=== PATIENT | male | born 1945 | race African-American/Black ===

== ENCOUNTER 2020-07-27 08:22 | Inpatient (IN) | payer OTHER ==
[~2020-07-27] VITALS: Ht 332.7 cm; Wt 99.8 kg
[2020-07-27] MEDS ORDERED: SODIUM CHLORIDE 0.9% 1000ML BAG (SEPSIS BOLUS) IV ONE (08:45)
[2020-07-27 09:24] LABS: CLARITY URINE CLEAR (CLEAR); COLOR URINE YELLOW (YELLOW); KETONES URINE NEGATIVE (NEGATIVE); LEUKOCYTE ESTERASE URINE NEGATIVE (NEGATIVE); NITRITE URINE NEGATIVE (NEGATIVE); OCCULT BLOOD URINE 1+ (NEGATIVE); PROTEIN URINE 3+ (NEGATIVE); SPECIFIC GRAVITY URINE 1.015 (1.005-1.030)
[2020-07-27 09:33] LABS: BASOPHILS % 0.3 % (0.0-2.0); EOSINOPHILS % 0.6 % (0.0-5.0); HEMATOCRIT. 46.2 % (42.0-52.0); HEMOGLOBIN. 15.4 g/dL (14.0-18.0); LYMPHOCYTES % 11.5 % (20.0-50.0); MEAN CORPUSCULAR HEMOGLOBIN 28.1 pg (28.0-32.0); MEAN PLATELET VOLUME 9.3 fl (7.4-10.4); NEUTROPHILS % 80.6 % (40.0-76.0); PLATELET 201 x1000/uL (130-400); RED BLOOD CELL COUNT 5.51 mill/uL (4.7-6.1); RED CELL DISTRIBUTION WIDTH 15.7 % (11.6-14.6)
[2020-07-27 09:37] LABS: CHLORIDE 101 mEq/L (98-107)
[2020-07-27 09:46] LABS: CREATINE KINASE 847 IU/L (39-308)
[2020-07-27 09:58] LABS: D-DIMER 1.12 mg/L FEU (<0.50); PROTHROMBIN TIME 10.5 sec (9.6-11.0)
[2020-07-27 10:35] LABS: BG CARBOXYHEMOGLOBIN 0.8 % (0.5-1.5); BG DEOXYHEMOGLOBIN 1.7 % (0.0-5.0); BG FRACTION INSPIRED OXYGEN 100; BG HCO3 ACT 24.1 mmol/L (22.0-26.0); BG METHEMOGLOBIN 0.4 % (0.0-1.5); BG OXYGEN SATURATION 98.3 % (92.0-98.5); BG OXYHEMOGLOBIN 97.1 % (94.0-97.0); BG PCO2 37.8 mmHg (35.0-45.0); BG PH 7.423 (7.350-7.450); BG PO2 120.3 mmHg (75.0-100.0); BG SAMPLE SITE LEFT RADIAL; BG TOTAL HEMOGLOBIN 15.5 g/dL (12.0-18.0); BG VENT MODE MASK - NRB
[2020-07-27] MEDS ORDERED: CEFTRIAXONE 1 G PREMIX 50 ML IV ONE (10:45)
[2020-07-27] MEDS ORDERED: AZITHROMYCIN 500 MG in DEXT 5% WATER 250 ML IV SCH (10:45)
[2020-07-27] MEDS: GUAIFENESIN-DM 200MG-20MG/10ML UDC PO PRN (21:32)
[2020-07-28] MEDS: CLONIDINE 0.1MG TABLET PO PRN ×3 (01:07→18:37)
[2020-07-28] MEDS: GUAIFENESIN-DM 200MG-20MG/10ML UDC PO PRN (05:04)
[2020-07-28 09:00] VITALS: BP 218/113
[2020-07-28] MEDS ORDERED: ONDANSETRON HCL 4MG/2ML INJ IV PRN (09:15)
[2020-07-28] MEDS ORDERED: ALBUTEROL 6.7GM HFA INHALER ORI PRN (09:15)
[2020-07-28] MEDS ORDERED: DEXAMETHASONE 4MG TABLET PO SCH (09:30)
[2020-07-28] MEDS: AMLODIPINE 10MG TABLET PO SCH (10:24)
[2020-07-28] MEDS: ENOXAPARIN 30MG/0.3ML SYR SUBCUT SCH ×2 (10:26→23:39)
[2020-07-28 11:00] VITALS: BP 214/113
[2020-07-28] MEDS ORDERED: CEFTRIAXONE 1 G PREMIX 50 ML IV SCH (11:00)
[2020-07-28] MEDS ORDERED: HYDRALAZINE HCL 100MG TABLET PO NR (11:30)
[2020-07-28 12:00] VITALS: BP 153/88
[2020-07-28 12:22] LABS: BASOPHILS % 0.3 % (0.0-2.0); EOSINOPHILS % 0.4 % (0.0-5.0); HEMATOCRIT. 45.6 % (42.0-52.0); HEMOGLOBIN. 15.4 g/dL (14.0-18.0); LYMPHOCYTES % 8.4 % (20.0-50.0); MEAN CORPUSCULAR HEMOGLOBIN 28.5 pg (28.0-32.0); MEAN CORPUSCULAR VOLUME 84.3 fL (80.0-94.0); MEAN PLATELET VOLUME 10.1 fl (7.4-10.4); MONOCYTES % 9.7 % (2.0-8.0); NEUTROPHILS % 81.2 % (40.0-76.0); PLATELET 247 x1000/uL (130-400); RED BLOOD CELL COUNT 5.41 mill/uL (4.7-6.1); RED CELL DISTRIBUTION WIDTH 15.7 % (11.6-14.6)
[2020-07-28] MEDS: AZITHROMYCIN 500 MG in DEXT 5% WATER 250 ML IV SCH (12:59)
[2020-07-28] MEDS: CEFTRIAXONE 1,000 MG in DEXTROSE 5% WATER 50 ML IV SCH (12:59)
[2020-07-28] MEDS ORDERED: AZITHROMYCIN 500MG in DEXTROSE 5% WATER 250ML IV SCH (13:00)
[2020-07-28] MEDS: HYDRALAZINE HCL 100MG TABLET PO SCH ×2 (14:24→23:39)
[2020-07-28] MEDS: ALPRAZOLAM 0.25 MG TABLET PO PRN (14:24)
[2020-07-28] MEDS: SODIUM CHLORIDE 0.9% 1,000 ML IV SCH (15:35)
[2020-07-28 16:00] VITALS: BP 190/103
[2020-07-28 20:00] VITALS: BP 147/91
[2020-07-28] MEDS: ASCORBIC ACID 500 MG TABLET PO SCH (23:39)
[2020-07-29] VITALS: BP 131/78
[2020-07-29 04:00] VITALS: BP 147/81
[2020-07-29] MEDS: SODIUM CHLORIDE 0.9% 1,000 ML IV SCH ×2 (04:02→16:37)
[2020-07-29 07:13] LABS: BASOPHILS % 0.1 % (0.0-2.0); HEMATOCRIT. 43.4 % (42.0-52.0); HEMOGLOBIN. 14.1 g/dL (14.0-18.0); LYMPHOCYTES % 8.3 % (20.0-50.0); MEAN CORPUSCULAR HEMOGLOBIN 27.7 pg (28.0-32.0); MEAN CORPUSCULAR VOLUME 85.4 fL (80.0-94.0); MEAN PLATELET VOLUME 9.4 fl (7.4-10.4); MONOCYTES % 6.9 % (2.0-8.0); NEUTROPHILS % 84.7 % (40.0-76.0); PLATELET 268 x1000/uL (130-400); RED BLOOD CELL COUNT 5.09 mill/uL (4.7-6.1); RED CELL DISTRIBUTION WIDTH 15.6 % (11.6-14.6)
[2020-07-29 08:00] VITALS: BP 146/87
[2020-07-29] MEDS: ERGOCALCIFEROL 50000UNITS CAPSULE PO SCH (10:19)
[2020-07-29] MEDS: AMLODIPINE 10MG TABLET PO SCH (10:20)
[2020-07-29] MEDS: ASCORBIC ACID 500 MG TABLET PO SCH ×2 (10:20→21:57)
[2020-07-29] MEDS: DEXAMETHASONE 10 MG/ML VIAL IV SCH (10:20)
[2020-07-29] MEDS ORDERED: LIDOCAINE HCL/PF 1% 2ML VIAL ONE ×2 (11:00)
[2020-07-29] MEDS ORDERED: CEFTRIAXONE 1,000 MG in DEXTROSE 5% WATER 50 ML IV SCH (11:00)
[2020-07-29 12:00] VITALS: BP 138/70
[2020-07-29] MEDS: CEFTRIAXONE 1,000 MG in DEXTROSE 5% WATER 50 ML IV SCH (12:05)
[2020-07-29] MEDS: ENOXAPARIN 30MG/0.3ML SYR SUBCUT SCH ×2 (12:05→21:58)
[2020-07-29] MEDS: AZITHROMYCIN 500 MG in DEXT 5% WATER 250 ML IV SCH (13:25)
[2020-07-29 16:00] VITALS: BP 137/77
[2020-07-29 16:05] LABS: BG BASE EXCESS 0.4 mmol/L (-2.0-2.0); BG CARBOXYHEMOGLOBIN 0.2 % (0.5-1.5); BG DEOXYHEMOGLOBIN 1.1 % (0.0-5.0); BG FRACTION INSPIRED OXYGEN 100; BG HCO3 ACT 28.5 mmol/L (22.0-26.0); BG METHEMOGLOBIN 0.6 % (0.0-1.5); BG OXYGEN SATURATION 98.9 % (92.0-98.5); BG OXYHEMOGLOBIN 98.1 % (94.0-97.0); BG PCO2 59.9 mmHg (35.0-45.0); BG PH 7.296 (7.350-7.450); BG PO2 150.5 mmHg (75.0-100.0); BG SAMPLE SITE LEFT RADIAL; BG TOTAL HEMOGLOBIN 16.3 g/dL (12.0-18.0); BG VENT MODE MASK - NRB
[2020-07-29] MEDS: HYDRALAZINE HCL 100MG TABLET PO SCH ×2 (16:36→21:57)
[2020-07-29] MEDS ORDERED: DEXTROSE 50% WATER 50ML SYRINGE IV PRN (18:15)
[2020-07-29 20:00] VITALS: BP 154/80
[2020-07-29] MEDS: GUAIFENESIN-DM 200MG-20MG/10ML UDC PO PRN (21:57)
[2020-07-29] MEDS: ALPRAZOLAM 0.25 MG TABLET PO PRN (21:57)
[2020-07-29] MEDS: BLOOD SUGAR DIAGNOSTIC STRIP TEST SCH (21:58)
[2020-07-29] MEDS: INSULIN LISPRO 100 UNITS/ML SUBCUT SCH (22:00)
[2020-07-30] VITALS: BP 159/90
[2020-07-30 04:00] VITALS: BP 152/83
[2020-07-30] MEDS: HYDRALAZINE HCL 100MG TABLET PO SCH ×3 (05:51→22:01)
[2020-07-30] MEDS: BLOOD SUGAR DIAGNOSTIC STRIP TEST SCH ×4 (05:51→21:00)
[2020-07-30] MEDS: SODIUM CHLORIDE 0.9% 1,000 ML IV SCH (05:53)
[2020-07-30] MEDS: INSULIN LISPRO 100 UNITS/ML SUBCUT SCH ×4 (06:22→22:13)
[2020-07-30 08:00] VITALS: BP 154/84
[2020-07-30] MEDS: DEXAMETHASONE 10 MG/ML VIAL IV SCH (09:07)
[2020-07-30] MEDS: ENOXAPARIN 30MG/0.3ML SYR SUBCUT SCH ×2 (09:07→22:01)
[2020-07-30] MEDS: AMLODIPINE 10MG TABLET PO SCH (09:07)
[2020-07-30] MEDS: ASCORBIC ACID 500 MG TABLET PO SCH ×2 (09:07→22:02)
[2020-07-30 12:00] VITALS: BP 148/79
[2020-07-30] MEDS: CEFTRIAXONE 1,000 MG in DEXTROSE 5% WATER 50 ML IV SCH (12:34)
[2020-07-30 16:00] VITALS: BP 134/76
[2020-07-30 20:00] VITALS: BP 140/76
[2020-07-30] MEDS: INSULIN GLARGINE UD 100 UNITS/ML SYR SUBCUT SCH (23:16)
[2020-07-31] VITALS: BP 162/80
[2020-07-31 04:00] VITALS: BP 167/91
[2020-07-31] MEDS: BLOOD SUGAR DIAGNOSTIC STRIP TEST SCH ×4 (06:15→21:02)
[2020-07-31] MEDS: INSULIN LISPRO 100 UNITS/ML SUBCUT SCH ×4 (06:15→21:04)
[2020-07-31] MEDS: HYDRALAZINE HCL 100MG TABLET PO SCH ×3 (06:37→21:03)
[2020-07-31] MEDS: ASCORBIC ACID 500 MG TABLET PO SCH ×2 (09:05→21:05)
[2020-07-31] MEDS: DEXAMETHASONE 10 MG/ML VIAL IV SCH (09:05)
[2020-07-31] MEDS: AMLODIPINE 10MG TABLET PO SCH (09:05)
[2020-07-31] MEDS: SODIUM CHLORIDE 0.9% 1,000 ML IV SCH ×2 (09:14→22:14)
[2020-07-31] MEDS: ENOXAPARIN 30MG/0.3ML SYR SUBCUT SCH ×2 (10:37→21:01)
[2020-07-31] MEDS: INSULIN GLARGINE UD 100 UNITS/ML SYR SUBCUT SCH ×2 (10:38→22:13)
[2020-07-31 11:04] VITALS: BP 150/83
[2020-07-31 11:14] LABS: BASOPHILS % 0.3 % (0.0-2.0); EOSINOPHILS % 0.1 % (0.0-5.0); HEMATOCRIT. 46.8 % (42.0-52.0); HEMOGLOBIN. 15.1 g/dL (14.0-18.0); LYMPHOCYTES % 12.8 % (20.0-50.0); MEAN CORPUSCULAR HEMOGLOBIN 27.5 pg (28.0-32.0); MEAN CORPUSCULAR VOLUME 85.5 fL (80.0-94.0); MEAN PLATELET VOLUME 9.1 fl (7.4-10.4); MONOCYTES % 7.8 % (2.0-8.0); PLATELET 318 x1000/uL (130-400); RED BLOOD CELL COUNT 5.47 mill/uL (4.7-6.1); RED CELL DISTRIBUTION WIDTH 15.5 % (11.6-14.6)
[2020-07-31 11:28] LABS: CHLORIDE 107 mEq/L (98-107)
[2020-07-31] MEDS: CEFTRIAXONE 1,000 MG in DEXTROSE 5% WATER 50 ML IV SCH (11:31)
[2020-07-31 16:00] VITALS: BP 138/79
[2020-07-31] MEDS: CLONIDINE 0.1MG TABLET PO SCH ×2 (16:16→21:02)
[2020-07-31 20:00] VITALS: BP 147/86
[2020-08-01] VITALS (7 sets, daily range): BP systolic 113–163; BP diastolic 64–93
[2020-08-01] MEDS: BLOOD SUGAR DIAGNOSTIC STRIP TEST SCH ×4 (05:57→21:00)
[2020-08-01] MEDS: HYDRALAZINE HCL 100MG TABLET PO SCH ×3 (05:57→22:25)
[2020-08-01] MEDS: INSULIN LISPRO 100 UNITS/ML SUBCUT SCH ×4 (05:58→22:28)
[2020-08-01 07:28] LABS: BASOPHILS % 0.4 % (0.0-2.0); EOSINOPHILS % 0.4 % (0.0-5.0); HEMATOCRIT. 44.4 % (42.0-52.0); HEMOGLOBIN. 14.8 g/dL (14.0-18.0); LYMPHOCYTES % 17.3 % (20.0-50.0); MEAN CORPUSCULAR VOLUME 83.9 fL (80.0-94.0); MEAN PLATELET VOLUME 8.8 fl (7.4-10.4); MONOCYTES % 9.3 % (2.0-8.0); NEUTROPHILS % 72.6 % (40.0-76.0); PLATELET 334 x1000/uL (130-400); RED BLOOD CELL COUNT 5.29 mill/uL (4.7-6.1); RED CELL DISTRIBUTION WIDTH 15.4 % (11.6-14.6)
[2020-08-01 07:45] LABS: CHLORIDE 106 mEq/L (98-107)
[2020-08-01] MEDS: DEXAMETHASONE 10 MG/ML VIAL IV SCH (08:44)
[2020-08-01] MEDS: CLONIDINE 0.1MG TABLET PO SCH ×2 (08:48→22:25)
[2020-08-01] MEDS: AMLODIPINE 10MG TABLET PO SCH (08:48)
[2020-08-01] MEDS: ASCORBIC ACID 500 MG TABLET PO SCH ×2 (08:48→22:25)
[2020-08-01] MEDS: ENOXAPARIN 30MG/0.3ML SYR SUBCUT SCH ×2 (10:27→22:26)
[2020-08-01] MEDS: INSULIN GLARGINE UD 100 UNITS/ML SYR SUBCUT SCH ×2 (10:31→22:54)
[2020-08-01] MEDS: CEFTRIAXONE 1,000 MG in DEXTROSE 5% WATER 50 ML IV SCH (11:26)
[2020-08-01] MEDS: SODIUM CHLORIDE 0.9% 1,000 ML IV SCH (11:26)
[2020-08-01 16:24] LABS: BG BASE EXCESS 3.8 mmol/L (-2.0-2.0); BG CARBOXYHEMOGLOBIN 0.7 % (0.5-1.5); BG DEOXYHEMOGLOBIN 21.7 % (0.0-5.0); BG HCO3 ACT 29.7 mmol/L (22.0-26.0); BG METHEMOGLOBIN 0.3 % (0.0-1.5); BG OXYGEN SATURATION 78.1 % (92.0-98.5); BG OXYHEMOGLOBIN 77.3 % (94.0-97.0); BG PCO2 48.9 mmHg (35.0-45.0); BG PH 7.402 (7.350-7.450); BG SAMPLE SITE RIGHT RADIAL; BG TOTAL HEMOGLOBIN 16.8 g/dL (12.0-18.0); BG VENT MODE ROOM AIR
[2020-08-01] MEDS: CLONIDINE 0.1MG TABLET PO PRN (17:08)
[2020-08-02] VITALS (7 sets, daily range): BP systolic 141–185; BP diastolic 59–90
[2020-08-02] MEDS: SODIUM CHLORIDE 0.9% 1,000 ML IV SCH ×3 (01:03→22:27)
[2020-08-02] MEDS: CLONIDINE 0.1MG TABLET PO PRN (03:50)
[2020-08-02] MEDS: HYDRALAZINE HCL 100MG TABLET PO SCH ×3 (05:52→22:25)
[2020-08-02] MEDS: BLOOD SUGAR DIAGNOSTIC STRIP TEST SCH ×4 (05:54→21:00)
[2020-08-02] MEDS: INSULIN LISPRO 100 UNITS/ML SUBCUT SCH ×4 (05:54→22:28)
[2020-08-02] MEDS: INSULIN GLARGINE UD 100 UNITS/ML SYR SUBCUT SCH ×2 (09:50→22:39)
[2020-08-02] MEDS: CLONIDINE 0.2MG TABLET PO SCH ×2 (09:52→20:19)
[2020-08-02] MEDS: DEXAMETHASONE 10 MG/ML VIAL IV SCH (09:52)
[2020-08-02] MEDS: ASCORBIC ACID 500 MG TABLET PO SCH ×2 (09:52→22:25)
[2020-08-02] MEDS: AMLODIPINE 10MG TABLET PO SCH (09:52)
[2020-08-02] MEDS: ENOXAPARIN 30MG/0.3ML SYR SUBCUT SCH ×2 (09:53→22:25)
[2020-08-02] MEDS: ACETAMINOPHEN 325MG TABLET PO PRN (10:06)
[2020-08-02] MEDS: CEFTRIAXONE 1,000 MG in DEXTROSE 5% WATER 50 ML IV SCH (12:10)
[2020-08-02] MEDS: GUAIFENESIN-DM 200MG-20MG/10ML UDC PO PRN (22:24)
[2020-08-03] VITALS: BP 153/79
[2020-08-03 04:00] VITALS: BP 110/50
[2020-08-03] MEDS: HYDRALAZINE HCL 100MG TABLET PO SCH ×3 (06:00→21:16)
[2020-08-03] MEDS: BLOOD SUGAR DIAGNOSTIC STRIP TEST SCH ×4 (06:34→20:36)
[2020-08-03] MEDS: INSULIN LISPRO 100 UNITS/ML SUBCUT SCH ×4 (07:50→20:38)
[2020-08-03 08:00] VITALS: BP 174/82
[2020-08-03] MEDS: AMLODIPINE 10MG TABLET PO SCH (09:45)
[2020-08-03] MEDS: CLONIDINE 0.2MG TABLET PO SCH ×2 (09:45→21:17)
[2020-08-03] MEDS: ASCORBIC ACID 500 MG TABLET PO SCH ×2 (09:45→20:33)
[2020-08-03] MEDS: DEXAMETHASONE 10 MG/ML VIAL IV SCH (09:45)
[2020-08-03] MEDS: ENOXAPARIN 30MG/0.3ML SYR SUBCUT SCH ×2 (10:34→21:17)
[2020-08-03] MEDS: GUAIFENESIN-DM 200MG-20MG/10ML UDC PO PRN ×2 (10:34→20:33)
[2020-08-03] MEDS: INSULIN GLARGINE UD 100 UNITS/ML SYR SUBCUT SCH ×2 (10:35→22:00)
[2020-08-03 11:39] LABS: BG BASE EXCESS 3.6 mmol/L (-2.0-2.0); BG CARBOXYHEMOGLOBIN 0.2 % (0.5-1.5); BG DEOXYHEMOGLOBIN 1.4 % (0.0-5.0); BG FRACTION INSPIRED OXYGEN 36; BG HCO3 ACT 27.1 mmol/L (22.0-26.0); BG METHEMOGLOBIN 0.2 % (0.0-1.5); BG OXYGEN SATURATION 98.6 % (92.0-98.5); BG OXYHEMOGLOBIN 98.2 % (94.0-97.0); BG PCO2 37.7 mmHg (35.0-45.0); BG PH 7.475 (7.350-7.450); BG PO2 130.7 mmHg (75.0-100.0); BG SAMPLE SITE RIGHT RADIAL; BG TOTAL HEMOGLOBIN 15.7 g/dL (12.0-18.0); BG VENT MODE NASAL CANNULA
[2020-08-03 12:00] VITALS: BP 147/86
[2020-08-03 16:00] VITALS: BP 132/81
[2020-08-03] MEDS: SODIUM CHLORIDE 0.9% 1,000 ML IV SCH (17:02)
[2020-08-03] MEDS: ACETAMINOPHEN 325MG TABLET PO PRN (18:01)
[2020-08-03 20:00] VITALS: BP 116/77
[2020-08-04 00:46] VITALS: BP 179/85
[2020-08-04] MEDS: CLONIDINE 0.1MG TABLET PO PRN (01:08)
[2020-08-04 04:00] VITALS: BP 157/73
[2020-08-04] MEDS: SODIUM CHLORIDE 0.9% 1,000 ML IV SCH (06:30)
[2020-08-04] MEDS: BLOOD SUGAR DIAGNOSTIC STRIP TEST SCH ×4 (06:40→21:00)
[2020-08-04] MEDS: HYDRALAZINE HCL 100MG TABLET PO SCH ×3 (06:58→22:20)
[2020-08-04] MEDS: INSULIN LISPRO 100 UNITS/ML SUBCUT SCH ×4 (07:50→22:30)
[2020-08-04 07:54] LABS: BG BASE EXCESS 6.7 mmol/L (-2.0-2.0); BG CARBOXYHEMOGLOBIN 0.3 % (0.5-1.5); BG DEOXYHEMOGLOBIN 2.3 % (0.0-5.0); BG FRACTION INSPIRED OXYGEN 32; BG HCO3 ACT 31.3 mmol/L (22.0-26.0); BG METHEMOGLOBIN 0.1 % (0.0-1.5); BG OXYGEN SATURATION 97.7 % (92.0-98.5); BG OXYHEMOGLOBIN 97.3 % (94.0-97.0); BG PCO2 44.2 mmHg (35.0-45.0); BG PH 7.468 (7.350-7.450); BG PO2 99.3 mmHg (75.0-100.0); BG SAMPLE SITE LEFT RADIAL; BG TOTAL HEMOGLOBIN 15.3 g/dL (12.0-18.0); BG VENT MODE NASAL CANNULA
[2020-08-04 08:00] VITALS: BP 170/83
[2020-08-04] MEDS: CLONIDINE 0.2MG TABLET PO SCH ×2 (10:12→22:20)
[2020-08-04] MEDS: AMLODIPINE 10MG TABLET PO SCH (10:12)
[2020-08-04] MEDS: ASCORBIC ACID 500 MG TABLET PO SCH ×2 (10:12→22:19)
[2020-08-04] MEDS: ENOXAPARIN 30MG/0.3ML SYR SUBCUT SCH ×2 (10:13→22:21)
[2020-08-04] MEDS: DEXAMETHASONE 4MG TABLET PO SCH (10:13)
[2020-08-04] MEDS: INSULIN GLARGINE UD 100 UNITS/ML SYR SUBCUT SCH ×2 (10:25→22:30)
[2020-08-04 12:00] VITALS: BP 158/83
[2020-08-04] MEDS: GUAIFENESIN-DM 200MG-20MG/10ML UDC PO PRN (15:15)
[2020-08-04 16:00] VITALS: BP 130/71
[2020-08-04 20:00] VITALS: BP 159/93
[2020-08-05] VITALS: BP 137/77
[2020-08-05 04:00] VITALS: BP 164/83
[2020-08-05] MEDS: HYDRALAZINE HCL 100MG TABLET PO SCH ×3 (06:45→22:40)
[2020-08-05] MEDS: BLOOD SUGAR DIAGNOSTIC STRIP TEST SCH ×4 (07:15→20:54)
[2020-08-05] MEDS: INSULIN LISPRO 100 UNITS/ML SUBCUT SCH ×4 (07:16→22:41)
[2020-08-05 08:00] VITALS: BP 139/75
[2020-08-05] MEDS: ERGOCALCIFEROL 50000UNITS CAPSULE PO SCH (09:52)
[2020-08-05] MEDS: ASCORBIC ACID 500 MG TABLET PO SCH ×2 (09:52→22:40)
[2020-08-05] MEDS: DEXAMETHASONE 4MG TABLET PO SCH (09:52)
[2020-08-05] MEDS: CLONIDINE 0.2MG TABLET PO SCH ×2 (09:57→22:40)
[2020-08-05] MEDS: AMLODIPINE 10MG TABLET PO SCH (09:58)
[2020-08-05] MEDS: INSULIN GLARGINE UD 100 UNITS/ML SYR SUBCUT SCH ×2 (10:27→22:40)
[2020-08-05] MEDS: ENOXAPARIN 30MG/0.3ML SYR SUBCUT SCH ×2 (10:30→22:43)
[2020-08-05 12:00] VITALS: BP 154/94
[2020-08-05 15:57] LABS: BG BASE EXCESS 5.4 mmol/L (-2.0-2.0); BG CARBOXYHEMOGLOBIN 0.5 % (0.5-1.5); BG DEOXYHEMOGLOBIN 6.9 % (0.0-5.0); BG HCO3 ACT 31.2 mmol/L (22.0-26.0); BG METHEMOGLOBIN 0.4 % (0.0-1.5); BG OXYHEMOGLOBIN 92.2 % (94.0-97.0); BG PCO2 49.9 mmHg (35.0-45.0); BG PH 7.414 (7.350-7.450); BG SAMPLE SITE RIGHT RADIAL; BG TOTAL HEMOGLOBIN 15.1 g/dL (12.0-18.0); BG VENT MODE ROOM AIR
[2020-08-05 16:00] VITALS: BP 155/80
[2020-08-05 20:39] VITALS: BP 144/84
[2020-08-05] MEDS: SODIUM CHLORIDE 0.9% 1,000 ML IV SCH (22:30)
[2020-08-06] VITALS: BP 167/95
[2020-08-06 04:00] VITALS: BP 165/105
[2020-08-06] MEDS: HYDRALAZINE HCL 100MG TABLET PO SCH ×3 (05:12→21:50)
[2020-08-06] MEDS: CLONIDINE 0.1MG TABLET PO PRN (05:12)
[2020-08-06] MEDS: BLOOD SUGAR DIAGNOSTIC STRIP TEST SCH ×4 (06:00→21:01)
[2020-08-06] MEDS: INSULIN LISPRO 100 UNITS/ML SUBCUT SCH ×4 (07:21→21:52)
[2020-08-06 08:00] VITALS: BP_SYST 132; BP_SYST 180; BP_DIAS 69; BP_DIAS 81
[2020-08-06] MEDS: ENOXAPARIN 30MG/0.3ML SYR SUBCUT SCH ×2 (09:04→21:50)
[2020-08-06] MEDS: AMLODIPINE 10MG TABLET PO SCH (09:04)
[2020-08-06] MEDS: ASCORBIC ACID 500 MG TABLET PO SCH ×2 (09:04→21:50)
[2020-08-06] MEDS: DEXAMETHASONE 4MG TABLET PO SCH (09:04)
[2020-08-06] MEDS: CLONIDINE 0.2MG TABLET PO SCH ×3 (09:07→21:50)
[2020-08-06] MEDS: INSULIN GLARGINE UD 100 UNITS/ML SYR SUBCUT SCH ×2 (10:29→21:51)
[2020-08-06] MEDS: SODIUM CHLORIDE 0.9% 1,000 ML IV SCH (11:05)
[2020-08-06 12:00] VITALS: BP 154/78
[2020-08-06 20:00] VITALS: BP 155/92
[2020-08-07] MEDS: SODIUM CHLORIDE 0.9% 1,000 ML IV SCH ×2 (01:41→14:30)
[2020-08-07 04:18] VITALS: BP 156/74
[2020-08-07] MEDS: CLONIDINE 0.2MG TABLET PO SCH ×2 (06:26→14:37)
[2020-08-07] MEDS: HYDRALAZINE HCL 100MG TABLET PO SCH ×2 (06:26→14:37)
[2020-08-07] MEDS: BLOOD SUGAR DIAGNOSTIC STRIP TEST SCH ×3 (06:26→18:18)
[2020-08-07] MEDS: INSULIN LISPRO 100 UNITS/ML SUBCUT SCH ×3 (07:50→18:33)
[2020-08-07 08:00] VITALS: BP 120/63
[2020-08-07] MEDS: DEXAMETHASONE 4MG TABLET PO SCH (09:16)
[2020-08-07] MEDS: ASCORBIC ACID 500 MG TABLET PO SCH (09:16)
[2020-08-07] MEDS: AMLODIPINE 10MG TABLET PO SCH (09:17)
[2020-08-07] MEDS: GUAIFENESIN-DM 200MG-20MG/10ML UDC PO PRN (09:17)
[2020-08-07] MEDS: ENOXAPARIN 30MG/0.3ML SYR SUBCUT SCH (09:17)
[2020-08-07] MEDS: INSULIN GLARGINE UD 100 UNITS/ML SYR SUBCUT SCH (09:18)
[2020-08-07 19:13] VITALS: BP 115/66
== END 2020-08-07 21:05 | disposition home or self-care (01) | DRG 871 ==
LOC: ER 08:34 → 8WST 11:28 → EDBEDREQSVC 11:35 → EDBEDREQTM 11:35 → EDBEDREQ 11:35 → ENRESERV 07-28 08:26 → 8WST 07-28 09:42 → 6WST 08-02 20:40
PROVIDERS: ADMIT Internal Medicine; ATTEND Internal Medicine
DX: A41.89 Other specified sepsis (principal); U07.1 COVID-19; J96.01 Acute respiratory failure with hypoxia; N17.0 Acute kidney failure with tubular necrosis; J12.82 Pneumonia due to coronavirus disease 2019; J15.9 Unspecified bacterial pneumonia; E44.0 Moderate protein-calorie malnutrition; J45.901 Unspecified asthma with (acute) exacerbation; Z68.1 Body mass index [BMI] 19.9 or less, adult; I16.0 Hypertensive urgency; J45.909 Unspecified asthma, uncomplicated; E11.9 Type 2 diabetes mellitus without complications; B97.89 Other viral agents as the cause of diseases classified elsewhere; I10 Essential (primary) hypertension; Z79.899 Other long term (current) drug therapy
CPT/HCPCS: 36415; 36600; 71045; 80048; 80053; 81003; 82375; 82550; 82728; 82805; 82962; 83036; 83605; 83615; 84145; 84484; 85025; 85379; 85384; 86140; 93005; 99285; C1893; C9803; J0456; J0696; J1100; J1650; J1815; J3490; J7030; J7040; J7060; J8540; U0003